=== PATIENT | male | born 1990 | race American Indian/Alaskan Native ===

== ENCOUNTER 2017-06-17 14:50 | Emergency (ER) | payer SELFPAY ==
[2017-06-17 14:59] VITALS: RESP 18
[2017-06-17 15:01] VITALS: TEMP 97.3
[2017-06-17 15:30] LABS: BASO # 0.02 K/mm3 (0.0-2.0); BASO % 0.3 % (0.0-3.0); EOS # 0.1 (0.0-0.7); GRAN # 5.76 (1.4-6.5); GRAN % 72.2 % (50.0-68.0); HEMATOCRIT 40.9 % (42.0-52.0); LYMPH # 1.6 (1.2-3.4); LYMPH % 19.9 % (22.0-35.0); MEAN CELL VOLUME 83.5 fl (80.0-105.0); MEAN CORPUSCULAR HEMOGLOBIN 28.4 pg (25.0-35.0); MEAN PLATELET VOLUME 11.9 fl (7.0-11.0); MONO # 0.5 (0.1-0.6); MONO % 6.6 % (1.0-6.0); RED CELL DISTRIBUTION WIDTH 13.8 % (11.5-14.5)
--- NOTE | 2017-06-17 15:35 | RAD ---
HISTORY: SOB COMPARISON: No prior. FINDINGS: LUNGS: No active pulmonary disease. PLEURA: No significant pleural effusion identified, no pneumothorax apparent. CARDIOVASCULAR: Normal. OSSEOUS STRUCTURES: No significant abnormalities. VISUALIZED UPPER ABDOMEN: Normal. OTHER FINDINGS: None. IMPRESSION: No active disease.
[2017-06-17 15:37] LABS: INR 1.19 (0.93-1.08); PARTIAL THROMBOPLASTIN TIME 26.9 Seconds (25.1-36.5)
[2017-06-17 15:40] LABS: ALB/GLOB RATIO 1.5 (1.1-1.8); ALKALINE PHOSPHATASE 37 U/L (38-126); ALT/SGPT 33 U/L (7-56); AST/SGOT 32 U/L (17-59); BILIRUBIN,TOTAL 0.5 mg/dL (0.2-1.3); BLOOD UREA NITROGEN 16 mg/dL (7-21); CALCIUM 10.1 mg/dL (8.4-10.5); CARBON DIOXIDE 22 mmol/L (21-33); CHLORIDE 102 mmol/L (98-107); GFR AFRICAN-AMERICAN > 60; GLUCOSE,RANDOM 137 mg/dL (70-110); MAGNESIUM 1.9 mg/dL (1.7-2.2); POTASSIUM 3.6 mmol/L (3.6-5.0); SODIUM 137 mmol/L (132-148); TOTAL PROTEIN 7.8 g/dL (5.8-8.3)
--- NOTE | 2017-06-17 15:48 | ED PDOC ---
Arrival/HPI - General Chief Complaint: Chest Pain Time Seen by Provider: 06/17/17 15:08 Historian: Patient - History of Present Illness Narrative History of Present Illness (Text): 06/17/17 15:44 27 yo M w/ no pmh, otherwise in good health, reports 1 week h/o intermittent dyspnea associated with mid sternal chest pain, states that his symptoms initially started as a sensation that his throat is closing up and he feels that air is trapped in the middle of his chest causing dyspnea. States that the symptoms are sporadic with no exacerbating or alleviating symptoms. Reports today, he was driving and he kept having to roll the window down due to symptoms. Otherwise: (-) radiation, (-) diaphoresis, (+) pleuritic component, (- ) ripping or tearing quality, (-) positional component, (-) exertional component , (-) dizziness, (-) syncope, (-) fever, (-) cough, (-) recent travel, (-) nausea, (-) vomiting, (-) calf swelling/pain, (-) neuro deficits, (-) h/o depression, (-) SI/HI. REYNA Jeong Past Medical History - Provider Review Nursing Documentation Reviewed: Yes - Infectious Disease Hx of Infectious Diseases: None - Psychiatric Hx Substance Use: No - Anesthesia Hx Anesthesia: No Family/Social History - Physician Review Nursing Documentation Reviewed: Yes Family/Social History: CAD/HI (father of HI at age 47) Smoking Status: Never Smoked Hx Alcohol Use: Yes Frequency of alcohol use: Socially Hx Substance Use: No (denies any h/o substance abuse of any kind) Allergies/Home Meds Allergies/Adverse Reactions: Allergies No Known Allergies Allergy (Verified 06/17/17 14:55) Home Medications: Home Meds Medication Instructions Recorded Confirmed No Known Home Med 06/17/17 06/17/17 Review of Systems - Review of Systems Constitutional: absent: Fatigue, Weight Change, Fevers ENT: Other (sensation of throat closing up). absent: Sore Throat, Rhinorrhea, Sinus Congestion Cardiovascular: Chest Pain. absent: Palpitations, Edema, Orthopnea Gastrointestinal: absent: Abdominal Pain, Nausea, Vomiting Musculoskeletal: absent: Arthralgias, Back Pain, Neck Pain Skin: absent: Rash, Pruritis, Skin Lesions Physical Exam - Physical Exam Narrative Physical Exam (Text): 06/17/17 15:49 GENERAL APPEARANCE: Patient is awake, alert, oriented x 3, is hyperventilating, in moderate distress. Patient appears anxious. SKIN: Warm, dry; (-) cyanosis. EYES: (-) conjunctival pallor. ENMT: Mucous membranes moist. NECK: (-) tenderness, (-) stiffness, (-) lymphadenopathy, (-) JVD. CHEST AND RESPIRATORY: (-) rash, (-) chest wall tenderness. Lungs: (-) rales , (-) rhonchi, (-) wheezes, (-) rub; breath sounds equal bilaterally. HEART AND CARDIOVASCULAR: (+) tachycardic, (-) irregularity; (-) murmur, (-) gallop, (-) rub. ABDOMEN AND GI: Soft; (-) distention, (-) tenderness, (-) palpable pulsatile mass. EXTREMITIES: (-) deformity; (-) edema, (-) calf tenderness. (+) distal pulses. NEURO AND PSYCH: Mental status as above. Cranial nerves grossly intact; strength symmetric. Vital Signs Temp Pulse Resp BP Pulse Ox 06/17/17 14:50 97.3 F L 113 H 18 150/80 100 Medical Decision Making ED Course and Treatment: 06/17/17 15:48 27 yo M w/ no pmh, reports 1 week h/o intermittent dyspnea associated with mid sternal chest pain, states that his symptoms initially started as a sensation that his throat was closing up and he feels that air is trapped in the middle of his chest causing dyspnea. Based on history and exam, patient likely has a panic attack, but will order labs and CXR. Plan: -- Labs -- IV -- monitor car operator -- O2 via NC -- EKG -- CXR -- Ativan 0.5 mg IV -- Reassess and disposition EKG : ST at 106 bpm, (-) acute ST changes, as read by TAMMY. CXR : NAD, as read by PA Labs reviewed : trop (-), d-dimer (-). Rest of the labs are wnl. On re- evaluation, patient is resting in bed comfortably in no acute distress, breathing easy and unlabored, reports no CP or SOB, states that he feels much improved and feels comfortable going home. VS : P 93 BP 146/83 O2sat 100%RA. Based on history, exam and diagnostic results plan will be for outpatient f/u. Dx of panic attack/anxiety d/w the patient in great detail. Patient instructed to follow up with primary care physician in 1-2 days without fail. Return to the emergency room at any time for any new or worsening symptoms. Patient states he fully agrees with and understands discharge instructions. States that he agrees with the plan and disposition. Verbalized and repeated discharge instructions and plan. I have given the patient opportunity to ask any additional questions. - Lab Interpretations Lab Results: 06/17/17 15:20 06/17/17 15:20 Lab Results 06/17/17 15:20: Sodium 137, Potassium 3.6, Chloride 102, Carbon Dioxide 22, Anion Gap 17, BUN 16, Creatinine 1.2, Est GFR ( Amer) > 60, Est GFR (Non- Af Amer) > 60, Random Glucose 137 H, Calcium 10.1, Magnesium 1.9, Total Bilirubin 0.5, AST 32, ALT 33, Alkaline Phosphatase 37 L, Lactate Dehydrogenase 488, Total Creatine Kinase 215, Troponin I < 0.01, Total Protein 7.8, Albumin 4.7, Globulin 3.1, Albumin/Globulin Ratio 1.5 06/17/17 15:20: PT 13.0 H, INR 1.19 H, APTT 26.9, D-Dimer, Quantitative < 200 06/17/17 15:20: WBC 8.0, RBC 4.90, Hgb 13.9 L, Hct 40.9 L, MCV 83.5, MCH 28.4, MCHC 34.0, RDW 13.8, Plt Count 211, MPV 11.9 H, Gran % 72.2 H, Lymph % (Auto) 19.9 L, Gaston % (Auto) 6.6 H, Eos % (Auto) 1.0 L, Baso % (Auto) 0.3, Gran # 5.76 , Lymph # 1.6, Gaston # 0.5, Eos # 0.1, Baso # 0.02 - RAD Interpretation Radiology Orders: 06/17/17 15:10 CHEST PORTABLE [RAD] Stat - Medication Orders Current Medication Orders: Discontinued Medications Lorazepam (Ativan) 0.5 mg IVP ONCE ONE PRN Reason: Protocol Stop: 06/17/17 15:12 Last Admin: 12/09/17 15:29 Dose: 0.5 mg IVP Administration Document 06/17/17 15:29 SRE (Rec: 06/17/17 15:30 SRE [id number]) Charges for Administration # of IVP Administrations 1 - PA / FITNESS AND WELLNESS INSTRUCTOR / Resident Statement /DO has reviewed & agrees with the documentation as recorded. Disposition/Present on Arrival - Present on Arrival Any Indicators Present on Arrival: No History of DVT/PE: No History of Uncontrolled Diabetes: No Urinary Catheter: No History of Decub. Ulcer: No History Surgical Site Infection Following: None - Disposition Have Diagnosis and Disposition been Completed?: Yes Diagnosis: Chest pain, Panic attack Disposition: HOME/ ROUTINE Disposition Time: 16:06 Patient Plan: Discharge Condition: IMPROVED Discharge Instructions (ExitCare): Chest Pain (ED), Panic Attack (ED) Print Language: SAMI Additional Instructions: Thank you for letting us take care of you today. You were treated for chest pain , likely panic attack. The emergency medical care you received today was directed at your acute symptoms. Return to the Emergency Department if your symptoms worsen, do not improve, or if you have any other problems. Please contact your doctor in 2 days for re-evaluation and follow up. Bring any paperwork you were given at discharge with you along with any medications you are taking to your follow up visit. Our treatment cannot replace ongoing medical care by a primary care provider (PCP) outside of the emergency department. Thank you for allowing the [facility] team to be part of your care today. Referrals: Isaias Jeong MD [Primary Care Provider] - Follow up with primary Forms: [employer] (Greenlandic), WORK NOTE
[2017-06-17 15:51] LABS: TROPONIN I < 0.01 ng/mL
[2017-06-17 15:52] LABS: D DIMER < 200 ng/mL (0-243)
[2017-06-17 16:06] VITALS: BP 146/85; PULSE 94; O2SAT 99
--- NOTE | 2017-06-18 20:08 | CARD ---
APPROVED REPORT EKG Measurement Heart [id number] <Conclusion> Sinus tachycardia Nonspecific T wave abnormality Abnormal ECG
== END 2017-06-17 16:00 | disposition home or self-care (01) ==
LOC: ED 14:50
DX: F41.0 Panic disorder [episodic paroxysmal anxiety] (principal); R07.9 Chest pain, unspecified
CPT/HCPCS: 71010; 80053; 82550; 83615; 83735; 84484; 85025; 85378; 85610; 85730; 93005; 96374; 99283; J2060